=== PATIENT | male | born 1990 | race African-American/Black ===

== ENCOUNTER 2022-02-16 07:09 | Emergency (ER) | payer OTHER ==
[~2022-02-16] VITALS: Ht 167.6 cm; Wt 77.1 kg
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
--- NOTE | 2022-02-16 07:39 | NUR ---
PT TAKEN TO RADIOLOGY FOR CT
--- NOTE | 2022-02-16 07:49 | NUR ---
PT RETURNED FROM RADIOLOGY
[2022-02-16] MEDS ORDERED: IBUPROFEN 600 MG TABLET ONE (08:13)
[2022-02-16] MEDS ORDERED: IBUPROFEN 600 MG TABLET PO ONE (08:30)
[2022-02-16] MEDS ORDERED: NAPR-1192 PO (08:51)
[2022-02-16 09:17] VITALS: BP 110/65
--- NOTE | 2022-02-16 10:05 | NUR ---
[facility] PERSON AT BEDSIDE FOR XRAY
--- NOTE | 2022-02-16 11:39 | NUR ---
DR ERVIN SPEAKING W/ PATIENT
--- NOTE | 2022-02-16 11:43 | NUR ---
Patient discharged to home in stable condition. Written and verbal after care instructions given. Patient verbalizes understanding of instruction.
== END 2022-02-16 11:47 | disposition home or self-care (01) ==
LOC: ER 07:16
DX: S16.1XXA Strain of muscle, fascia and tendon at neck level, initial encounter (principal); M25.512 Pain in left shoulder; M54.2 Cervicalgia; Z79.1 Long term (current) use of non-steroidal anti-inflammatories (NSAID); V89.2XXA Person injured in unspecified motor-vehicle accident, traffic, initial encounter; Y93.89 Activity, other specified; Y92.89 Other specified places as the place of occurrence of the external cause; Y99.8 Other external cause status
CPT/HCPCS: 72125-TC; 73030-TC; 73564-TC